=== PATIENT | female | born 1945 | race Caucasian/White ===

== ENCOUNTER 2024-01-15 10:02 | Inpatient (IN) ==
--- NOTE | 2024-01-15 10:12 | Emergency Department Note ---
Impression & Plan Intractable nausea and vomiting, Gastroparesis, Hypertensive urgency ED Provider Note Name: MERI LANDAVERDE Age: 78 Sex: Female Arrives Via: Ambulance Informant: Patient and family at bedside ED Provider: Tom Rascon MD Chief Complaint: Vomiting Impression: As per impressions above Medical Decision Makin-year-old female with a history of hypertension, gastroparesis, appendectomy amongst others arrives for evaluation of nausea vomiting this morning. Patient has persistent nausea and vomiting throughout the stay. Given multiple rounds of Zofran and then Reglan with mild improvement. Labs and imaging including CT ab pelvis with IV contrast unremarkable. Vital signs on arrival quite hypertensive thus required IV labetalol with improvement. EKG is reassuring as is chest x-ray. Troponin is 15 nonspecific. She is not having any active chest pain or shortness of breath. Given intractable nausea vomiting and the initial hypertensive will bring in for further evaluation. Of note the CT scan did show abnormality of the kidney. Patient is not having any flank pain or urinalysis unremarkable and blood pressure is coming down. Will defer to hospitalist for further workup at this time. Triage/Nursing Notes reviewed by Me Differential:Gastroenteritis, food borne illness, infections, appendicitis, diverticulitis, inflammatory bowel disease, obstruction, GI bleed, biliary pathology, volvulus, as well as other pathologies. Vital Signs: reviewed and remarkable for HTN Interventions: Zofran 4 mg IV x 3, labetalol 10 mg IV, Reglan 5 mg IV Labs:ED labs Reviewed by me and remarkable for mildly elevated troponin Imagin view chest x-ray no infiltrate nor effusion as per my interpretation. CT ab pelvis with IV contrast no obstruction, free fluid/free air as per my informal interpretation. Confirmed with radiology to do note questionable renal infarct versus infection. EKG:As per my interpretation. Indication hypertension. Normal sinus rhythm at 70 bpm QTc of 519 Per calculation however does not appear to be that prolonged. No previous EKGs for comparison. No ectopy nor ischemia appreciated. Cardiac/Tele Monitoring: Cardiac Monitoring: An Order was placed for continuous cardiac monitoring. The monitor shows a rate of 80 with a normal sinus rhythm. Consults:Dr. Maria Eugenia Barth hospitalist service, I reviewed patient with his team and they will evaluate for further management Plan: Disposition:Hospitalization. Condition: Good History of Present Illness: 78-year-old female arrives for evaluation of a abdominal discomfort. Associated with intractable vomiting since about 8 AM. Associated with diarrhea. No blood in stool or vomit. States abdominal discomfort is diffuse mild without localization. No radiation to back. Has a history of abdominal surgeries. Denies any falls, trauma, injuries. No medications prior to arrival. Patient notes she got a bit lightheaded with standing. Denies any specific headache, neurologic deficits, chest pain, shortness of breath, back pain, leg swelling or other concerning signs or symptoms. Denies any known sick contacts. She felt fine yesterday. Past Medical History: Hypertension, vertigo, anxiety, appendectomy, cholecystectomy, knee replacement Home Medications:See Below Allergies: Aspirin, sulfa Vitals:Blood Pressure: 213/111, Pulse 79, RR 18, T 36.0C, O2 97% on RA Physical Exam: GENERAL: Patient is uncomfortable appearing and in moderate distress. Dehydrated. RESPIRATORY: No dyspnea. Clear to auscultation and equal bilaterally. CARDIOVASCULAR: Regular rate and rhythm.No murmur appreciated. GASTROINTESTINAL: Abdomen soft, non-tender, no peritonitis. EXTREMITIES: Normal motion all extremities, no cyanosis, no edema. NEUROLOGIC: Alert and oriented. No focal neurologic deficits appreciated SKIN: No rash, no jaundice, no diaphoresis. PSYCH: Appropriate GCS: 15 ED Course: Times/Reassessments: Patient is quite hypertensive on arrival gradually improving. Continued nausea throughout her stay multiple rounds of Zofran but given the EKG with mild QTc prolongation trialed Reglan with some mild improvement still yet requires hospitalization given persistent nausea and other findings Tom Rascon MD Past Med/Surg History Problem List (Updated 01/15/24 @ 17:21 by Nilson Chen PA-C) Hypokalemia Elevated troponin Renal infarction Lightheadedness Hypertensive urgency (Acute) Gastroparesis (Acute) Intractable nausea and vomiting (Acute) Hypertension (Chronic) Contusion of right elbow (Acute) Contusion of right knee (Acute) Laceration of right eyebrow (Acute) Laceration of right eyebrow (Acute) Status post fall (Acute) Social History Smoking Status: Never smoker Hx Alcohol Use: No Hx Substance Use: No Preferred Language: Albanian Communication Ability: Effective Medical Voucher Clerk Required: No Beliefs That Will Affect Care: None Current Living Situation: Spouse Feels Safe at Home: Yes Safety Concerns: Feels Safe At This Time Assistive Devices: Glasses Allergies Allergies Allergy/AdvReac Type Severity Reaction Status Date / Time Sulfa (Sulfonamide Allergy Intermediate Unknown Verified 01/15/24 17:11 Antibiotics) aspirin AdvReac Mild upset Verified 02/04/14 21:21 stomach Home Meds Home Medications Medication Instructions Recorded Confirmed CELECOXIB (CeleBREX) 200 mg PO DAILY #0 caps 02/04/14 01/15/24 Ergocalciferol (Vitamin D) 800 inter.unit PO DAILY #0 tabs 02/04/14 01/15/24 Escitalopram (Lexapro) 10 mg PO DAILY #0 tabs 02/04/14 01/15/24 LORAZEPAM (ATIVAN) 0.5 mg PO HS PRN Anxiety #0 tabs 02/04/14 01/15/24 MECLIZINE HCL 25 mg PO PRN ##0 02/04/14 01/15/24 Multivitamins/Minerals (Mvi With 1 tab PO DAILY #0 tabs 02/04/14 01/15/24 Minerals) amlodipine 2.5 mg tablet 2.5 mg PO BID 01/15/24 01/15/24 losartan 50 mg tablet 50 mg PO DAILY 01/15/24 01/15/24 pantoprazole 40 mg tablet,delayed 40 mg PO DAILY 01/15/24 01/15/24 release pravastatin 80 mg tablet 80 mg PO HS 01/15/24 01/15/24 Results & Data (ED) Vital Signs Vital Signs - 24 hr 01/15/24 13:00 01/15/24 14:15 01/15/24 15:10 Pulse Rate 69 Pulse Rate [Left Finger] 56 L Pulse Rate from SpO2 Sensor Respiratory Rate 20 Blood Pressure Blood Pressure [Right Arm] 157/84 H Blood Pressure Mean Blood Pressure Mean [Right Arm] 108 Blood Pressure Position [Right Arm] Sitting Pulse Oximetry 93 86 L Oxygen Delivery Method Room Air Oxygen Flow Rate 01/15/24 15:10 01/15/24 16:00 01/15/24 16:00 Pulse Rate 59 L Pulse Rate [Left Finger] Pulse Rate from SpO2 Sensor 59 L Respiratory Rate 13 Blood Pressure 156/80 H Blood Pressure [Right Arm] Blood Pressure Mean 91 Blood Pressure Mean [Right Arm] Blood Pressure Position [Right Arm] Pulse Oximetry 94 97 Oxygen Delivery Method Nasal Cannula Oxygen Flow Rate 2 01/15/24 16:39 09/05/24 16:54 Pulse Rate 58 L 63 Pulse Rate [Left Finger] Pulse Rate from SpO2 Sensor 57 L 63 Respiratory Rate 12 14 Blood Pressure Blood Pressure [Right Arm] Blood Pressure Mean Blood Pressure Mean [Right Arm] Blood Pressure Position [Right Arm] Pulse Oximetry 96 97 Oxygen Delivery Method Nasal Cannula Oxygen Flow Rate 2 Laboratory Data 01/16/24 05:56 01/16/24 05:56 Lab Results 01/15/24 01/15/24 01/15/24 Range/Units 10:20 11:21 12:23 WBC Cancelled 7.16 RBC Cancelled 3.82 L Hgb Cancelled 12.0 Hct Cancelled 36.0 L MCV Cancelled 94.2 MCH Cancelled 31.4 MCHC Cancelled 33.3 RDW Std Deviation Cancelled 46.5 H RDW Coeff of Roel Cancelled 13.5 Plt Count Cancelled 236 MPV Cancelled 9.6 Immature Gran % (Auto) Cancelled 0.7 Neut % (Auto) Cancelled 61.5 Lymph % (Auto) Cancelled 17.7 Garrett % (Auto) Cancelled 17.5 Eos % (Auto) Cancelled 2.0 Baso % (Auto) Cancelled 0.6 Neut # (Auto) Cancelled 4.41 Lymph # (Auto) Cancelled 1.27 Garrett # (Auto) Cancelled 1.25 H Eos # (Auto) Cancelled 0.14 Baso # (Auto) Cancelled 0.04 Immature Gran # (Auto) Cancelled 0.05 Absolute Nucleated RBC Cancelled Nucleated RBC % (auto) Cancelled Neutrophils % (Manual) Cancelled Band Neutrophils % Cancelled Lymphocytes % (Manual) Cancelled Prolymphocyte % Cancelled Reactive Lymphs % (Man) Cancelled Monocytes % (Manual) Cancelled Eosinophils % (Manual) Cancelled Basophils % (Manual) Cancelled Metamyelocytes % (Man) Cancelled Myelocytes % (Man) Cancelled Promyelocytes % (Man) Cancelled Blast Cells % (Manual) Cancelled Plasma Cell % (Manual) Cancelled Other Cells % Cancelled Nucleated RBC % Cancelled Neutrophils # (Manual) Cancelled Band Neutrophils # Cancelled Total Absolute Neuts Cancelled Lymphocytes # (Manual) Cancelled Prolymphocyte # Cancelled Reactive Lymphs # Cancelled Total Abs Lymphocytes Cancelled Monocytes # (Manual) Cancelled Eosinophils # (Manual) Cancelled Basophils # (Manual) Cancelled Metamyelocytes # (Man) Cancelled Myelocytes # (Manual) Cancelled Promyelocytes # (Man) Cancelled Blast Cells # (Man) Cancelled Plasma Cell # (Manual) Cancelled Other Cells # Cancelled Nucleated RBCs # (Man) Cancelled Hypersegmented Neuts Cancelled Hyposegmented Neuts Cancelled Hypogranular Neuts Cancelled Large Granular Lymphs Cancelled # Lrg Granular Lymphs Cancelled Hairy Cells Cancelled Smudge Cells Cancelled Toxic Granulation Cancelled Toxic Vacuolation Cancelled Dohle Bodies Cancelled Emma Rods Cancelled Platelet Estimate Cancelled Hypogranular Platelets Cancelled Giant Platelets Cancelled Platelet Satelliting Cancelled RBC Morphology Cancelled Polychromasia Cancelled Hypochromasia Cancelled Poikilocytosis Cancelled Basophilic Stippling Cancelled Anisocytosis Cancelled Microcytosis Cancelled Macrocytosis Cancelled Spherocytes Cancelled Pappenheimer Bodies Cancelled Sickle Cells Cancelled Target Cells Cancelled Tear Drop Cells Cancelled Ovalocytes Cancelled Stomatocytes Cancelled Gillespie-Crozet Bodies Cancelled Echinocytes Cancelled Acanthocytes (Spur) Cancelled Rouleaux Cancelled RBC Agglutinates Cancelled Schistocytes Cancelled Sezary Cell Cancelled Sodium TNP 135 L 135 L Potassium TNP 3.4 L 3.5 Chloride 101 (98-107) mmol/L Carbon Dioxide 21 (21-32) mmol/L Anion Gap TNP BUN 17 (6-23) mg/dl Creatinine 1.31 H (0.6-1.2) mg/dl Est Cr Clr Drug Dosing 37.0 ml/min Est GFR ( Amer) 44.5 ml/min Est GFR (Non-Af Amer) 38.4 ml/min BUN/Creatinine Ratio 13.0 (10-20) Glucose 185 H (70-99(Fasting)) mg/dl Calcium 8.9 (8.6-10.3) mg/dl Magnesium TNP 1.6 L 1.6 L Total Bilirubin 0.4 (0.2-1.0) mg/dl Direct Bilirubin TNP 0.0 0.0 AST TNP 25 23 ALT 19 (7-52) U/L Alkaline Phosphatase 67 (34-104) U/L Total Creatine Kinase (26-192) U/L Troponin I High Sens 15.9 H (0-14) pg/ml Total Protein 7.3 (6.0-8.3) gm/dl Albumin 4.3 (3.4-5.0) gm/dl Lipase 29 (11-82) U/L Urine Color Urine Appearance (Clear) Urine pH (4.5-7.5) Ur Specific [place] (1.000-1.030) Urine Protein (Negative) Urine Glucose (UA) (Negative) Urine Ketones (Negative) Urine Blood (Negative) Urine Nitrite (Negative) Urine Bilirubin (Negative) Urine Urobilinogen (Negative) Ur Leukocyte Esterase (Negative) Blood Parasites ID Cancelled 01/15/24 01/15/24 Range/Units 12:33 14:44 WBC RBC Hgb Hct MCV MCH MCHC RDW Std Deviation RDW Coeff of Roel Plt Count MPV Immature Gran % (Auto) Neut % (Auto) Lymph % (Auto) Garrett % (Auto) Eos % (Auto) Baso % (Auto) Neut # (Auto) Lymph # (Auto) Garrett # (Auto) Eos # (Auto) Baso # (Auto) Immature Gran # (Auto) Absolute Nucleated RBC Nucleated RBC % (auto) Neutrophils % (Manual) Band Neutrophils % Lymphocytes % (Manual) Prolymphocyte % Reactive Lymphs % (Man) Monocytes % (Manual) Eosinophils % (Manual) Basophils % (Manual) Metamyelocytes % (Man) Myelocytes % (Man) Promyelocytes % (Man) Blast Cells % (Manual) Plasma Cell % (Manual) Other Cells % Nucleated RBC % Neutrophils # (Manual) Band Neutrophils # Total Absolute Neuts Lymphocytes # (Manual) Prolymphocyte # Reactive Lymphs # Total Abs Lymphocytes Monocytes # (Manual) Eosinophils # (Manual) Basophils # (Manual) Metamyelocytes # (Man) Myelocytes # (Manual) Promyelocytes # (Man) Blast Cells # (Man) Plasma Cell # (Manual) Other Cells # Nucleated RBCs # (Man) Hypersegmented Neuts Hyposegmented Neuts Hypogranular Neuts Large Granular Lymphs # Lrg Granular Lymphs Hairy Cells Smudge Cells Toxic Granulation Toxic Vacuolation Dohle Bodies Emma Rods Platelet Estimate Hypogranular Platelets Giant Platelets Platelet Satelliting RBC Morphology Polychromasia Hypochromasia Poikilocytosis Basophilic Stippling Anisocytosis Microcytosis Macrocytosis Spherocytes Pappenheimer Bodies Sickle Cells Target Cells Tear Drop Cells Ovalocytes Stomatocytes Gillespie-Crozet Bodies Echinocytes Acanthocytes (Spur) Rouleaux RBC Agglutinates Schistocytes Sezary Cell Sodium Potassium Chloride (98-107) mmol/L Carbon Dioxide (21-32) mmol/L Anion Gap BUN (6-23) mg/dl Creatinine (0.6-1.2) mg/dl Est Cr Clr Drug Dosing ml/min Est GFR ( Amer) ml/min Est GFR (Non-Af Amer) ml/min BUN/Creatinine Ratio (10-20) Glucose (70-99(Fasting)) mg/dl Calcium (8.6-10.3) mg/dl Magnesium Total Bilirubin (0.2-1.0) mg/dl Direct Bilirubin AST ALT (7-52) U/L Alkaline Phosphatase (34-104) U/L Total Creatine Kinase 277 H (26-192) U/L Troponin I High Sens 20.5 H (0-14) pg/ml Total Protein (6.0-8.3) gm/dl Albumin (3.4-5.0) gm/dl Lipase (11-82) U/L Urine Color Yellow Urine Appearance Clear (Clear) Urine pH 6.5 (4.5-7.5) Ur Specific [place] 1.013 (1.000-1.030) Urine Protein Negative (Negative) Urine Glucose (UA) Trace H (Negative) Urine Ketones Negative (Negative) Urine Blood Negative (Negative) Urine Nitrite Negative (Negative) Urine Bilirubin Negative (Negative) Urine Urobilinogen Negative (Negative) Ur Leukocyte Esterase Negative (Negative) Blood Parasites ID Administered Medications Amlodipine Besylate (Amlodipine Besylate 5 Mg Tab) 2.5 mg PO BID ELVER Stop: 02/15/24 08:59 Last Admin: 01/16/24 08:21 Dose: 2.5 mg Documented By: Enoxaparin Sodium (Enoxaparin 80 Mg/0.8 Ml Syr) 80 mg SQ Q12H ELVER Stop: 02/14/24 21:59 Last Admin: 01/16/24 10:37 Dose: 80 mg Documented By: Admin: 01/15/24 22:59 Dose: 80 mg Documented By: GH Escitalopram Oxalate (Escitalopram Oxalate 10 Mg Tab) 10 mg PO DAILY ELVER Stop: 02/15/24 08:59 Last Admin: 01/16/24 08:21 Dose: 10 mg Documented By: Losartan Potassium (Losartan Potassium 50 Mg Tab) 50 mg PO DAILY ELVER Stop: 02/15/24 08:59 Last Admin: 01/16/24 08:21 Dose: 50 mg Documented By: Ondansetron HCl (Ondansetron Inj 2 Mg/Ml 2 Ml Vial) 4 mg IV Q4H PRN PRN Reason: Nausea Stop: 02/14/24 20:11 Last Admin: 01/16/24 08:44 Dose: 4 mg Documented By: Admin: 01/16/24 04:31 Dose: 4 mg Documented By: WIL Pantoprazole Sodium (Pantoprazole 40 Mg Tab) 40 mg PO DAILY ELVER Stop: 02/15/24 08:59 Last Admin: 01/16/24 08:21 Dose: 40 mg Documented By: Discontinued Medications Hydromorphone HCl (Hydromorphone Inj 0.5 Mg/0.5 Ml Syr) 0.5 mg IV NOW STA Stop: 01/15/24 10:10 Last Admin: 01/15/24 10:24 Dose: 0.5 mg Documented By: EMILEE Sodium Chloride (Nss) 1,000 mls @ 999 mls/hr IV .Q1H1M ONE Stop: 01/15/24 12:49 Last Infusion: 01/15/24 14:17 Dose: Infused Documented By: Admin: 01/15/24 13:08 Dose: 999 mls/hr Documented By: CHARMAINE Magnesium Sulfate/Dextrose (Magnesium Sulfate / D5w) 1 gm in 100 mls @ 50 mls/hr IV Q2H ELVER Stop: 01/15/24 20:59 Last Infusion: 01/15/24 21:59 Dose: Infused Documented By: Admin: 01/15/24 19:56 Dose: 50 mls/hr Documented By: Infusion: 01/15/24 19:49 Dose: Infused Documented By: Admin: 01/15/24 17:49 Dose: 50 mls/hr Documented By: BLANCHE Potassium Chloride (K [place] / Wtr) 10 meq in 100 mls @ 100 mls/hr IV Q1H ELVER Stop: 01/15/24 19:44 Last Infusion: 01/16/24 00:46 Dose: Infused Documented By: Admin: 01/15/24 22:28 Dose: 100 mls/hr Documented By: Infusion: 01/15/24 21:44 Dose: Infused Documented By: Admin: 01/15/24 20:44 Dose: 100 mls/hr Documented By: LISA Promethazine HCl (Phenergan) 12.5 mg in 50.5 mls @ 202 mls/hr IV NOW STA Stop: 01/15/24 20:22 Last Admin: 01/15/24 21:00 Dose: Not Given Documented By: LISA Lactated Ringer's (Lr) 500 mls @ 999 mls/hr IV .Q31M ONE Stop: 01/16/24 09:05 Last Infusion: 01/16/24 09:18 Dose: Infused Documented By: Admin: 01/16/24 08:40 Dose: 999 mls/hr Documented By: BRIGIDO Ioversol (Optiray 320 100ml) 92 ml IV ONCE ONE Stop: 01/15/24 14:05 Last Admin: 01/15/24 14:04 Dose: 92 ml Documented By: CINTIA Ioversol (Optiray 320 125ml) 112 ml IV ONCE ONE Stop: 01/16/24 09:45 Last Admin: 01/16/24 09:45 Dose: 112 ml Documented By: TOSHIA Labetalol HCl (Labetalol Hcl Iv 5 Mg/Ml 20ml) 10 mg IV NOW STA Stop: 01/15/24 11:07 Last Admin: 01/15/24 11:12 Dose: 10 mg Documented By: EMILEE Lorazepam (Lorazepam 0.5 Mg Tab) 0.5 mg PO NOW STA Stop: 01/16/24 10:24 Last Admin: 01/16/24 10:37 Dose: 0.5 mg Documented By: BRIGIDO Metoclopramide HCl (Metoclopramide Hcl Inj 5 Mg/Ml 2 Ml Vial) 5 mg IV ONE ONE Stop: 01/15/24 15:32 Last Admin: 01/15/24 15:38 Dose: 5 mg Documented By: BLANCHE Ondansetron HCl (Ondansetron Inj 2 Mg/Ml 2 Ml Vial) 4 mg IV NOW STA Stop: 01/15/24 10:10 Last Admin: 01/15/24 10:25 Dose: 4 mg Documented By: EMILEE Ondansetron HCl (Ondansetron Inj 2 Mg/Ml 2 Ml Vial) 4 mg IV NOW STA Stop: 01/15/24 11:50 Last Admin: 01/15/24 13:08 Dose: 4 mg Documented By: CHARMAINE Ondansetron HCl (Ondansetron Inj 2 Mg/Ml 2 Ml Vial) 4 mg IV NOW STA Stop: 01/15/24 14:33 Last Admin: 01/15/24 14:42 Dose: 4 mg Documented By: CHARMAINE Ondansetron HCl (Ondansetron Inj 2 Mg/Ml 2 Ml Vial) Confirm Administered Dose 4 mg .ROUTE .STK-MED ONE Stop: 01/15/24 14:34 Last Admin: 01/15/24 14:41 Dose: Not Given Documented By: CHARMAINE Pantoprazole Sodium (Pantoprazole 40 Mg Tab) 40 mg PO NOW STA Stop: 01/15/24 17:11 Last Admin: 01/15/24 17:49 Dose: 40 mg Documented By: BLANCHE Imaging Data Radiologist's Impression: KUB X-Ray 01/15/24 10:09 KUB HISTORY: Acute nausea and vomiting vomiting COMPARISON: Chest radiograph of same day FINDINGS: There are a few scattered surgical clips noted within the abdomen with cholecystectomy. The bowel gas pattern appears nonobstructive. Renal shadows are obscured by bowel gas. Right hemidiaphragmatic elevation. No renal calculi. No ureteral calculi. No pneumoperitoneum or pneumatosis. Lumbar dextroscoliosis. No fracture. IMPRESSION: Nonobstructive bowel gas pattern. ACT 112: Negative or not required by law. The above report was generated using voice recognition software. It may contain grammatical, syntax or spelling errors. Electronically signed by: Regan Arciniega M.D. 01/15/2024 11:56 AM Chest X-Ray 01/15/24 10:10 XR chest 1V portable HISTORY: 78 years-old Female vomiting, htn acute nausea and vomiting with hypertension COMPARISON: KUB of same day TECHNIQUE: AP view of the chest FINDINGS: Cardiac silhouette is enlarged. Mild right hemidiaphragmatic elevation. Left hilar surgical lisseth. No pneumothorax, pleural effusion, airspace consolidation or pulmonary edema. Bones of the chest appear grossly intact. IMPRESSION: No acute process. ACT 112: Negative or not required by law. The above report was generated using voice recognition software. It may contain grammatical, syntax or spelling errors. Electronically signed by: Regan Arciniega M.D. 01/15/2024 11:40 AM Abdomen/Pelvis CT 01/15/24 11:[address] WITH IV CONTRAST CT DOSE: 1328.74 mGy.cm HISTORY: Acute nausea with vomiting intractable vomiting TECHNIQUE: Multiaxial CT images of the abdomen and pelvis were performed following the IV administration of 92 cc of Optiray, A dose lowering technique was utilized adhering to the principles of ALARA. COMPARISON STUDY: None. FINDINGS: Mild cardiomegaly. Right hemidiaphragmatic elevation with mild subsegmental bibasilar atelectasis. No free air. Unremarkable spleen, pancreas and adrenal glands. Cholecystectomy with postsurgical biliary ductal dilation. Unremarkable liver. Patency of the hepatic and portal veins. Ill-defined wedge-shaped area of decreased attenuation within the mid inferior pole left kidney measuring 1.8 cm. Mild cortical thinning of the kidneys. Unremarkable urinary bladder. Uterus appears surgically absent. Atherosclerosis of the aorta without aneurysm. No lymphadenopathy. Small hiatal hernia. No bowel obstruction. Colonic diverticulosis. Prior partial sigmoid colon resection. There is a mild wall thickening noted throughout the colon. Unremarkable soft tissues. No acute fracture. Prior appendectomy. IMPRESSION: 1. No bowel obstruction or pneumoperitoneum. 2. Areas of mild wall thickening throughout the large bowel may be secondary to partial distention versus a mild nonspecific colitis. 3. Appendectomy and cholecystectomy. 4. Focal area of decreased attenuation within the mid to inferior pole left kidney suggestive of a renal infarct versus pyelonephritis. Correlate with urinalysis. 5. Small hiatal hernia. ACT 112: Negative or not required by law. The above report was generated using voice recognition software. It may contain grammatical, syntax or spelling errors. Electronically signed by: Regan Arciniega M.D. 01/15/2024 3:11 PM Discharge Plan Visit Data Chief Complaint: Illness Stated Complaint: DIARRHEA, VOMITING ED Provider: Tom Rascon Discharge Problem: Intractable nausea and vomiting, Gastroparesis, Hypertensive urgency Patient Disposition: Admitted As Inpatient Discharge Instructions Interventions: ED Discharge Assessment Last Done: 01/15/24 18:39
[2024-01-15] MEDS: HYDROmorphone INJ 0.5 MG/0.5 ML SYR IV STA (10:24)
[2024-01-15] MEDS: ONDANSETRON INJ 2 MG/ML 2 ML VIAL IV STA ×3 (10:25→14:42)
[2024-01-15] MEDS: LABETALOL HCL IV 5 MG/ML 20ML IV STA (11:12)
[2024-01-15 11:15] LABS: Alanine Aminotransferase 19 U/L (7-52); Albumin Level 4.3 gm/dl (3.4-5.0); Alkaline Phosphatase 67 U/L (34-104); Bilirubin,Total 0.4 mg/dl (0.2-1.0); Blood Urea Nitrogen 17 mg/dl (6-23); Calcium 8.9 mg/dl (8.6-10.3); Carbon Dioxide 21 mmol/L (21-32); Chloride 101 mmol/L (98-107); Est GFR (African American) 44.5 ml/min; Est GFR (Non-African American) 38.4 ml/min; Glucose 185 mg/dl (70-99(Fasting)); Lipase 29 U/L (11-82); Total Protein 7.3 gm/dl (6.0-8.3)
[2024-01-15 11:39] LABS: Troponin I High Sensitivity 15.9 pg/ml (0-14)
[2024-01-15 11:40] LABS: Red Blood Count 3.82 M/uL (4.20-5.40); White Blood Count 7.16 K/ul (4.8-10.8)
[2024-01-15 11:41] LABS: Basophils # (auto) 0.04 K/uL (0.00-0.20); Basophils % (auto) 0.6 %; Eosinophils # (auto) 0.14 K/uL (0.00-0.50); Immature Granulocytes # (auto) 0.05 K/uL (0.01-0.20); Immature Granulocytes % (auto) 0.7 %; Lymphocytes # (auto) 1.27 K/uL (1.20-3.40); Lymphocytes % (auto) 17.7 %; Mean Corpuscular Hemoglobin 31.4 pg (25.0-34.0); Mean Corpuscular Hgb Conc 33.3 g/dL (32.0-36.0); Mean Corpuscular Volume 94.2 fL (80.0-100.0); Mean Platelet Volume 9.6 fL (9.4-12.4); Monocytes # (auto) 1.25 K/uL (0.11-0.59); Monocytes % (auto) 17.5 %; Neutrophils # (auto) 4.41 K/uL (1.40-6.50); Neutrophils % (auto) 61.5 %; Platelet Count 236 K/uL (130-400); RDW Coefficient of Variation 13.5 % (11.5-14.5); RDW Standard Deviation 46.5 fL (36.4-46.3)
--- NOTE | 2024-01-15 11:42 | XRay Report ---
XR chest 1V portable HISTORY: 78 years-old Female vomiting, htn acute nausea and vomiting with hypertension COMPARISON: KUB of same day TECHNIQUE: AP view of the chest FINDINGS: Cardiac silhouette is enlarged. Mild right hemidiaphragmatic elevation. Left hilar surgical lisseth. No pneumothorax, pleural effusion, airspace consolidation or pulmonary edema. Bones of the chest appe ar grossly intact. IMPRESSION: No acute process. ACT 112: Negative or not required by law. The above report was generated using voice recognition software. It may contain grammatical, syntax o r spelling errors. Electronically signed by: Regan Arciniega M.D. 01/15/2024 11:40 AM
--- NOTE | 2024-01-15 11:57 | XRay Report ---
KUB HISTORY: Acute nausea and vomiting vomiting COMPARISON: Chest radiograph of same day FINDINGS: There are a few scattered surgical clips noted within the abdomen with cholecystectomy. The bowel gas pattern appears nonobstructive. Renal shadows are obscured by bowel gas. Right hemidiaphra gmatic elevation. No renal calculi. No ureteral calculi. No pneumoperitoneum or pneumatosis. Lumbar dextroscoliosis. No fracture. IMPRESSION: Nonobstructive bowel gas pattern. ACT 112: Negative or not required by law. The above report was generated using voice recognition software. It may contain grammatical, syntax o r spelling errors. Electronically signed by: Regan Arciniega M.D. 01/15/2024 11:56 AM
[2024-01-15 12:03] LABS: Magnesium 1.6 mg/dl (1.7-2.4); Potassium 3.4 mmol/L (3.5-5.1)
[2024-01-15 13:07] LABS: Magnesium 1.6 mg/dl (1.7-2.4); Potassium 3.5 mmol/L (3.5-5.1)
[2024-01-15] MEDS: SODIUM CHLORIDE 0.9% 1,000 ML IV ONE (13:08)
[2024-01-15] MEDS: OPTIRAY 320 100ml IV ONE (14:04)
[2024-01-15] MEDS: ONDANSETRON INJ 2 MG/ML 2 ML VIAL ONE (14:41)
[2024-01-15 14:58] LABS: Appearance Urine Clear (Clear); Bilirubin Urine Negative (Negative); Blood Urine Negative (Negative); Color Urine Yellow; Glucose Urine UA Trace (Negative); Ketones Urine Negative (Negative); Leukocyte Esterase Urine Negative (Negative); Nitrite Urine Negative (Negative); Protein Urine Negative (Negative); Specific Gravity Urine 1.013 (1.000-1.030); Urobilinogen Urine Negative (Negative); pH Urine 6.5 (4.5-7.5)
--- NOTE | 2024-01-15 15:12 | CT Scan Report ---
ABDOMEN AND PELVIS CT WITH IV CONTRAST CT DOSE: 1328.74 mGy.cm HISTORY: Acute nausea with vomiting intractable vomiting TECHNIQUE: Multiaxial CT images of the abdomen and pelvis were performed following the IV administrat ion of 92 cc of Optiray, A dose lowering technique was utilized adhering to the principles of ALARA. COMPARISON STUDY: None. FINDINGS: Mild cardiomegaly. Right hemidiaphragmatic elevation with mild subsegmental bibasilar atele ctasis. No free air. Unremarkable spleen, pancreas and adrenal glands. Cholecystectomy with postsurgi easton biliary ductal dilation. Unremarkable liver. Patency of the hepatic and portal veins. Ill-defined wedge-shaped area of decreased attenuation within the mid inferior pole left kidney measu ring 1.8 cm. Mild cortical thinning of the kidneys. Unremarkable urinary bladder. Uterus appears surg ically absent. Atherosclerosis of the aorta without aneurysm. No lymphadenopathy. Small hiatal hernia. No bowel obstruction. Colonic diverticulosis. Prior partial sigmoid colon resect ion. There is a mild wall thickening noted throughout the colon. Unremarkable soft tissues. No acute fracture. Prior appendectomy. IMPRESSION: 1. No bowel obstruction or pneumoperitoneum. 2. Areas of mild wall thickening throughout the large bowel may be secondary to partial distention ve rsus a mild nonspecific colitis. 3. Appendectomy and cholecystectomy. 4. Focal area of decreased attenuation within the mid to inferior pole left kidney suggestive of a re nal infarct versus pyelonephritis. Correlate with urinalysis. 5. Small hiatal hernia. ACT 112: Negative or not required by law. The above report was generated using voice recognition software. It may contain grammatical, syntax o r spelling errors. Electronically signed by: Regan Arciniega M.D. 01/15/2024 3:11 PM
[2024-01-15] MEDS: METOCLOPRAMIDE HCL INJ 5 MG/ML 2 ML VIAL IV ONE (15:38)
--- NOTE | 2024-01-15 16:35 | History & Physical Report ---
Date of Service January 15, 2024 Assessment & Plan (1) Hypertensive urgency: Plan: Admit to the PCU on telemetry and pulse oximetry Currently stable nontoxic-appearing Presented to the ED via EMS after waking with acute onset of lightheadedness, nausea, and nonbloody emesis [place] her normal self when she went to bed yesterday evening Was noted to be significantly hypertensive on arrival at 259/159 but otherwise stable Multiple possible pathologies to her hypertension on arrival as she reported she missed her at bedtime dose of amlodipine on 01/14/2024. >CT of the abdomen pelvis with IV contrast today noted a focal area of decreased attenuation within the mid to inferior pole of the left kidney suggestive of a renal infarct versus pyelonephritis >UA appears clean and patient has been without symptoms of UTI >If she truly had an renal infarction, this could possibly explain her hypertension on presentation Patient has responded well to 10 mg IV labetalol so far Will obtain stat CT of the head and brain without contrast for the evaluation with better hypertension lightheadedness on arrival Would restart her home losartan and amlodipine when her nausea resolves For now we will start labetalol to keep systolic blood pressure was 180 mmHg and diastolic less than [address] head and brain without contrast is within normal limits will start therapeutic lovenox for both renal infarction and DVT prophylaxis Clear liquid diet for now until nausea improves AM CBC, CMP, mag, PT/INR (2) Renal infarction: Plan: -At this time we have high clinical suspicion that the CT abd/pelvis results represent an acute renal infarction -Patient is without UA results or symptoms to suggest UTI/pyelonephritis -HTN, nausea, and vomiting are often seen with renal infarction -Will obtain hypercoagulable workup and TTE -Will speak with radiology to see if further imaging would be required for further assessment -If CT of the head/brain wo con is WNL will start patient on Lovenox for initial anticoagulation -Follow daily renal function (3) Intractable nausea and vomiting: Plan: Patient woke with nausea and multiple sets of nonbloody emesis Nausea and vomiting could possibly related to her hypertension on arrival, patient was also noted to have signs of bowel wall thickening on CT of the abdomen pelvis which could possibly represent a nonspecific colitis After multiple doses of Zofran and a dose of metoclopramide symptoms are currently under control Review of patient's EKG shows her QTc prolonged at 516, will need to be cautious using IV antiemetics moving forward Will give a dose of p.o. pantoprazole now and continue to monitor (4) Lightheadedness: Plan: Patient noted lightheadedness upon waking today with significant hypertension No other focal neuro symptoms, neuro exam is nonfocal Symptoms have improved but not completely resolved since control her blood pressure Suspect her lightheadedness was due to her significant hypertension arrival at will obtain CT of the head and brain without contrast now for further evaluation Fall/aspiration precautions have been ordered (5) Elevated troponin: Plan: Initial high-sensitivity troponin mildly elevated at 15.9 Patient denies recent chest pain, no significant ST segment or T wave changes on EKG Suspect the elevated troponin is due to her significant hypertension on arrival Will obtain repeat high-sensitivity troponin now and continue monitor on telemetry Follow TTE results tomorrow as we have ordered TTE for further evaluation of possible renal infarct (6) Hypokalemia: Plan: Potassium of 3.4 o arrival Mag is 1.6 Likely combination of hypomagnesemia and recurrent nausea/vomiting prior to arrival Will give 2 bags 1 g IV mag sulfate on admission Monitor a.m. renal function electrolytes Plan The patient was discussed with Dr. Pepe at the time of the admission History of Present Illness Chief Complaint: N/V/D Primary Care Provider: Michael Nunes MD [place] is a 78-year-old female with a past medical history significant for hypertension, anxiety, And hyperlipidemia who presented to the [facility] ED on 01/15/[facility]24 with complaints of approximate 1 week of current nausea, vomiting, and diarrhea. On arrival to the ED she was noted to be significantly hypertensive at 259/159 But otherwise stable. She later became hypoxic after receiving IV pain and nausea medications. Labs were significant for a creatinine 1.31 (no previous baseline in our system), magnesium 1.6, initial high-sensitivity troponin 15, and trace glucose in her UA. Chest x-ray and KUB were read as negative for acute findings. CT of the abdomen pelvis with IV contrast was read as no bowel obstruction or pneumoperitoneum. Areas of mild wall thickening throughout the large bowel may be secondary to partial distention versus a mild nonspecific colitis. Appendectomy and cholecystectomy. Focal area of decreased attenuation within the mid to inferior pole left kidney suggestive of a renal infarct versus pyelonephritis. Correlate with urinalysis. Small hiatal hernia. Prior to admission the patient was given 10 mg IV labetalol, 0.5 mg IV Dilaudid, 3 doses of 4 mg IV Zofran, 5 mg IV metoclopramide, and 1 L normal saline. Patient is lying in bed in no acute distress at time of exam with her and daughter sitting bedside, history is obtained from both. The patient had been in normal state health when she went to bed last evening, when asked she did note that she forgot to take her at bedtime dose of amlodipine. When she woke this morning she explained that she felt "funny". When asked to elaborate further she states she felt somewhat lightheaded and began to experience nausea and nonbloody emesis. Denies any abdominal or back pain. Denies chest pain, shortness of breath, headache, changes in vision, hearing, taste, smell, fever/chills, dysuria/hematuria, diarrhea, melena, lower extremity swelling, and recent trauma. Feels improved compared to arrival but still feeling slightly lightheaded. She currently takes amlodipine and losartan for blood pressure. When asked about eating out recently she confirms that she did not have [employer] yesterday for dinner, her also had the same meal and did not experience any similar symptoms. Denies a previous history of atrial fibrillation, blood clots, or diabetes mellitus. Denied a previous history of any major bleeding if systemic anticoagulation would be required. Confirms she did not have any of her a.m. medications today due to her nausea and vomiting. She wishes to be a full code and for her daughter to make medical decisions for her if she cannot make them herself. Patient explains that she is normally at [facility] patient. Please refer to Dr. Pepe's attestation for any changes to the treatment plan Allergies Allergy/AdvReac Type Severity Reaction Status Date / Time Sulfa (Sulfonamide Allergy Intermediate Unknown Verified 01/15/24 17:11 Antibiotics) aspirin AdvReac Mild upset Verified 02/04/14 21:21 stomach Home Medications Medication Instructions Recorded Confirmed Type CELECOXIB (CeleBREX) 200 mg PO DAILY #0 caps 02/04/14 01/15/24 History Ergocalciferol (Vitamin D) 800 inter.unit PO DAILY #0 tabs 02/04/14 01/15/24 History Escitalopram (Lexapro) 10 mg PO DAILY #0 tabs 02/04/14 01/15/24 History LORAZEPAM (ATIVAN) 0.5 mg PO HS PRN Anxiety #0 tabs 02/04/14 01/15/24 History MECLIZINE HCL 25 mg PO PRN ##0 02/04/14 01/15/24 History Multivitamins/Minerals (Mvi With 1 tab PO DAILY #0 tabs 02/04/14 01/15/24 History Minerals) amlodipine 2.5 mg tablet 2.5 mg PO BID 01/15/24 01/15/24 History losartan 50 mg tablet 50 mg PO DAILY 01/15/24 01/15/24 History pantoprazole 40 mg tablet,delayed 40 mg PO DAILY 01/15/24 01/15/24 History release pravastatin 80 mg tablet 80 mg PO HS 01/15/24 01/15/24 History Past Med/Surg History Problem List (Updated 01/15/24 @ 17:21 by Nilson Chen PA-C) Hypokalemia Elevated troponin Renal infarction Lightheadedness Hypertensive urgency (Acute) Gastroparesis (Acute) Intractable nausea and vomiting (Acute) Hypertension (Chronic) Contusion of right elbow (Acute) Contusion of right knee (Acute) Laceration of right eyebrow (Acute) Laceration of right eyebrow (Acute) Status post fall (Acute) Social History Smoking Status: Never smoker Hx Alcohol Use: No Hx Substance Use: No Preferred Language: Icelandic Communication Ability: Effective Compounder Sterile Products Required: No Beliefs That Will Affect Care: None Current Living Situation: Spouse Feels Safe at Home: Yes Safety Concerns: Feels Safe At This Time Assistive Devices: Glasses Physical Exam Physical Exam: Physical Exam: General: In no acute distress, stated age, well-nourished, Nontoxic-appearing HEENT: Normocephalic, atraumatic, no scleral icterus, pupils around round, symmetrical, and reactive to light, dry mucus membranes, trachea midline, no thyromegaly Chest/Pulm: No respiratory distress, symmetrical chest expansion, clear breath sounds throughout Cardiac: RRR, no murmurs noted Abdomen: Negative for ascites and bruising, normoactive bowel sounds, soft, non-tender to palpation throughout Musculoskeletal: Symmetrical and without signs of acute trauma, upper and lower extremities with full ROM, no atrophy, spasticity, or flaccidity Extremities: Radial, dorsalis pedis, and posterior tibial pulses are intact and symmetrical, no edema noted in the BL LE's Skin: Warm, dry, no rashes , lesions, or scars noted Neuro: Alert and oriented to person, place, month, year, and president, no focal defects, CN II-XII tested and intact, Negative cerebellar and pronator drift testing of bilateral upper extremities, no tremors noted Psych: No acute distress, calm and cooperative during the exam Results & Data Results & Data Vital Signs (Past 12 Hours) Vital Signs Temp Pulse Pulse Resp BP BP Pulse Ox 01/15/24 15:10 94 01/15/24 15:10 86 L 01/15/24 14:15 69 01/15/24 13:00 56 L 20 157/84 H 93 01/15/24 11:12 77 169/99 H 01/15/24 11:01 70 20 259/159 H 98 01/15/24 10:11 79 01/15/24 10:07 36.0 C L 79 18 213/111 H 97 O2 Del Method O2 Flow Rate 01/15/24 15:10 Nasal Cannula 2 01/15/24 15:10 Room Air 01/15/24 14:15 01/15/24 13:00 01/15/24 11:12 01/15/24 11:01 01/15/24 10:11 01/15/24 10:07 Room Air Laboratory Results Abnormal lab results 01/15/24 01/15/24 01/15/24 Range/Units 10:20 11:21 12:23 RBC 3.82 L (4.20-5.40) M/uL Hct 36.0 L (37.0-47.0) % RDW Std Deviation 46.5 H (36.4-46.3) fL [place] # (Auto) 1.25 H (0.11-0.59) K/uL Sodium 135 L 135 L (136-145) mmol/L Potassium 3.4 L (3.5-5.1) mmol/L Creatinine 1.31 H (0.6-1.2) mg/dl Glucose 185 H (70-99(Fasting)) mg/dl Magnesium 1.6 L 1.6 L (1.7-2.4) mg/dl Troponin I High Sens 15.9 H (0-14) pg/ml Urine Glucose (UA) (Negative) 01/15/24 Range/Units 14:44 RBC (4.20-5.40) M/uL Hct (37.0-47.0) % RDW Std Deviation (36.4-46.3) fL [place] # (Auto) (0.11-0.59) K/uL Sodium (136-145) mmol/L Potassium (3.5-5.1) mmol/L Creatinine (0.6-1.2) mg/dl Glucose (70-99(Fasting)) mg/dl Magnesium (1.7-2.4) mg/dl Troponin I High Sens (0-14) pg/ml Urine Glucose (UA) Trace H (Negative) Diagnostic Findings KUB X-Ray 01/15/24 10:09 KUB HISTORY: Acute nausea and vomiting vomiting COMPARISON: Chest radiograph of same day FINDINGS: There are a few scattered surgical clips noted within the abdomen with cholecystectomy. The bowel gas pattern appears nonobstructive. Renal shadows are obscured by bowel gas. Right hemidiaphragmatic elevation. No renal calculi. No ureteral calculi. No pneumoperitoneum or pneumatosis. Lumbar dextroscoliosis. No fracture. IMPRESSION: Nonobstructive bowel gas pattern. ACT 112: Negative or not required by law. The above report was generated using voice recognition software. It may contain grammatical, syntax or spelling errors. Electronically signed by: Regan Arciniega M.D. 01/15/2024 11:56 AM Chest X-Ray 01/15/24 10:10 XR chest 1V portable HISTORY: 78 years-old Female vomiting, htn acute nausea and vomiting with hypertension COMPARISON: KUB of same day TECHNIQUE: AP view of the chest FINDINGS: Cardiac silhouette is enlarged. Mild right hemidiaphragmatic elevation. Left hilar surgical lisseth. No pneumothorax, pleural effusion, airspace consolidation or pulmonary edema. Bones of the chest appear grossly intact. IMPRESSION: No acute process. ACT 112: Negative or not required by law. The above report was generated using voice recognition software. It may contain grammatical, syntax or spelling errors. Electronically signed by: Regan Arciniega M.D. 01/15/2024 11:40 AM Abdomen/Pelvis CT 01/15/24 11:[address] WITH IV CONTRAST CT DOSE: 1328.74 mGy.cm HISTORY: Acute nausea with vomiting intractable vomiting TECHNIQUE: Multiaxial CT images of the abdomen and pelvis were performed following the IV administration of 92 cc of Optiray, A dose lowering technique was utilized adhering to the principles of ALARA. COMPARISON STUDY: None. FINDINGS: Mild cardiomegaly. Right hemidiaphragmatic elevation with mild subsegmental bibasilar atelectasis. No free air. Unremarkable spleen, pancreas and adrenal glands. Cholecystectomy with postsurgical biliary ductal dilation. Unremarkable liver. Patency of the hepatic and portal veins. Ill-defined wedge-shaped area of decreased attenuation within the mid inferior pole left kidney measuring 1.8 cm. Mild cortical thinning of the kidneys. Unremarkable urinary bladder. Uterus appears surgically absent. Atherosclerosis of the aorta without aneurysm. No lymphadenopathy. Small hiatal hernia. No bowel obstruction. Colonic diverticulosis. Prior partial sigmoid colon resection. There is a mild wall thickening noted throughout the colon. Unremarkable soft tissues. No acute fracture. Prior appendectomy. IMPRESSION: 1. No bowel obstruction or pneumoperitoneum. 2. Areas of mild wall thickening throughout the large bowel may be secondary to partial distention versus a mild nonspecific colitis. 3. Appendectomy and cholecystectomy. 4. Focal area of decreased attenuation within the mid to inferior pole left kidney suggestive of a renal infarct versus pyelonephritis. Correlate with urinalysis. 5. Small hiatal hernia. ACT 112: Negative or not required by law. The above report was generated using voice recognition software. It may contain grammatical, syntax or spelling errors. Electronically signed by: Regan Arciniega M.D. 01/15/2024 3:11 PM ECG Additional Comments: Normal sinus rhythm with possible atrial Enlargement Code Status & VTE Plan Code Status Full code VTE Prophylaxis Plan VTE Prophylaxis will be ordered: Yes Supervising Physician Co-Signing Physician Notes I personally saw and examined the patient. I verified all lawrence points and agree with Nilson Chen PA-C with the following exceptions and/or additions: 78 year old female presents to the ER with intractable nausea, vomiting and high blood pressure. Renal infarct noted on CT. PA discussed with radiology and renal arteries appear widely patent therefore no need for CT angiogram. O/E HS RRR, no murmurs, Chest CTAB, Abdo SNT, no CVA tenderness, CN2-> 12 intact, no extremity weakness or loss of sensation A/P Intractable nausea and vomiting - unclear if driven by hypertension, stress, gastroparesis or renal infarct. Either way ondansetron has been somewhat helpful and will continue on this with repeat EKG showing QTc < 500ms. Hopefully with better control of her BP and Renal infarct - unclear if this is a new finding as the patient reports something was previously found on CT at [facility] but she is unsure what this is an never been on anticoagulation previously therefore will request records but presumption is this is new and will send hypercoagulable panel and start Lovenox for anticoagulation, pending hypercoagulable results duration recommended of 6 months. PG Care Time/CCT Total # of Minutes Spent Total Time Spent with Patient: Total time spent is greater than 50% in coordination of care (as documented) at patient's floor/unit and/or counseling patient: [place] [address] INT INP/OBS CARE 3/75MIN Patient Type New Medical Decision Making High Complexity Diagnoses Hypertensive urgency I16.0 Renal infarction N28.0 Intractable nausea and vomiting R11.2 Lightheadedness R42 Elevated troponin R79.89 Hypokalemia E87.6
[2024-01-15] MEDS ORDERED: ACETAMINOPHEN 1,000 MG/100 ML VIAL IV PRN (17:00)
[2024-01-15] MEDS ORDERED: LABETALOL HCL IV 5 MG/ML 20ML IV PRN (17:08)
[2024-01-15] MEDS: PANTOprazole 40 MG TAB PO STA (17:49)
[2024-01-15] MEDS: MAGNESIUM SULFATE / D5W 1 GM/100 ML BAG IV SCH (17:49)
[2024-01-15 18:12] LABS: Troponin I High Sensitivity 20.5 pg/ml (0-14)
[2024-01-15] MEDS: POTASSIUM CHLORIDE / WTR 10 MEQ/100 ML PLCT IV SCH (20:44)
[2024-01-15] MEDS: PROMETHAZINE 12.5 MG/50.5 ML BAG IV STA (21:00)
--- NOTE | 2024-01-15 21:34 | CT Scan Report ---
Exam(s): CT HEAD Without Contrast EXAM: CT Head Without Intravenous Contrast CLINICAL HISTORY: Reason for exam: HTN, nausea/vomiting, lightheadedness. TECHNIQUE: Axial computed tomography images of the head/brain without intravenous contrast. Automated exposure control was utilized for the study. A dose lowering technique was utilized adhering to the principles of ALARA. COMPARISON: CT head: 02/04/2014. FINDINGS: Diagnostic sensitivity of the exam is reduced by motion artifact. Brain: No acute intracranial hemorrhage, mass-effect or midline shift. No extra-axial fluid collections. . Age-related cerebral atrophy, with widening of the extra-axial spaces and ventricles are dilation. There are areas of decreased attenuation within the white matter tracts, compatible with chronic microvascular disease changes. Punctate senescent calcifications in the right basal ganglia Bones/joints: Unremarkable. No acute fracture. Soft tissues: Unremarkable. Sinuses: Bilateral ethmoidectomies.. No acute sinusitis. Mastoid air cells: Unremarkable as visualized. No mastoid effusion.. IMPRESSION: No acute intracranial abnormality noted. Chronic involutional and ischemic changes of the brain. . Electronically signed by: Siobhan Zavala MD, RODRIGOR 01/15/24 21:33 PM
[2024-01-15 21:49] LABS: Partial Thromboplastin Time 27 Seconds (21-31); Prothrombin Time 10.6 Seconds (9.0-12.0)
[2024-01-15] MEDS: ENOXAPARIN 80 MG/0.8 ML SYR SQ SCH (22:59)
--- OUTSIDE RECORDS SUMMARY | 2024-01-15 23:40 | External Medical Summary | Continuity of Care Document ---
Author Name Unknown Organization [address] [id number] Care Team Providers Care Taker Away Name Role Phone Katty Moreno Primary Care Physician [phone] Encounter [facility] [id number] Date(s): 12/31/23 - 12/31/[address] [address] [phone] Encounter Diagnosis Diverticulitis(Discharge Diagnosis) - 01/01/24 Discharge Disposition: Home or Self Care Attending Physician: MD Douglass Wilmot Clyde Allergies, Adverse Reactions, Alerts Substance Criticality Severity Reaction Reaction Severity Status aspirin Nausea Active sulfa drugs Nausea Active Assessment and Plan Extracted from: Title:Office Visit Note Author:MD Douglass Wilmot Clyde Date:01/01/24 1.Diverticulitis She is currently doing well. She is over her diverticulitis and knows to call here if she has any further issues. She is 78 years old and her colonoscopies have all been polyp free in the past. Granted her dad did have colon cancer but not until really late in life. I told her we could do colonoscopy as a routine if she wanted to but also if she decided she would rather not, she is 78 and I wouldn't argue with her. She feels like she doesn't want to do one because she always has anxiety issues and syncope related to IV starting. She will call if she changes her mind. Immunizations Given and Recorded Vaccine Date Status Refusal Reason pneumococcal 23-valent vaccine 01/29/12 Given pneumococcal 23-valent vaccine 05/12/06 Recorded influenza virus vaccine, inactivated 01/29/12 Give n influenza virus vaccine, inactivated 03/13/09 Jason rded zoster vaccine live 08/16/08 Recorded tetanus toxoids-diphtheria, Td (Adult) 05/12/07 Re corded tetanus toxoids-diphtheria, Td (Adult) 07/16/99 Re corded Medications amLODIPine 2.5 mg oral tablet Start: 12/31/23 11:14:00 AM EDT, 1 tab, PO, bid Start Date: 12/31/23 Status: Ordered Antivert Start: 10/10/14 8:55:00 AM EDT, 25 mg =, PO, bid, PRN: as needed for dizziness Start Date: 10/10/14 Status: Ordered Ativan Start: 10/10/14 8:56:00 AM EDT, 0.5 mg =, PO, PRN: as needed for anxiety Start Date: 10/10/14 Status: Ordered biotin 10 mg oral tablet Start: 11/03/18 10:44:00 AM EDT, 1 tab, PO, Daily Start Date: 11/03/18 Status: Ordered calcium (as carbonate) 500 mg oral tablet, chewable Start: 11/03/18 10:43:00 AM EDT, 1 tab, PO, Daily Start Date: 11/03/18 Status: Ordered Flexeril Start: 11/03/18 10:40:00 AM EDT, PO, qhs Start Date: 11/03/18 Status: Ordered Lexapro 10 mg oral tablet Start: 03/16/12 2:46:00 PM EST, 1 tab, PO, Daily Start Date: 03/16/12 Status: Ordered Lomotil 2.5 mg-0.025 mg oral tablet Start: 06/17/17 11:19:00 AM EST, 1 tab, PO, bid, Disp# 50 tab, Refills: 3, PRN: as needed for loose stool Start Date: 06/17/17 Status: Ordered losartan 50 mg oral tablet Start: 12/31/23 11:15:00 AM EDT, 1 tab, PO, Daily Start Date: 12/31/23 Status: Ordered Nasacort Allergy 24HR nasal spray Start: 10/10/14 9:05:00 AM EDT, 2 spray, intranasal, Daily Start Date: 10/10/14 Status: Ordered tetanus/diphth/pertuss (Tdap) adult/adol 5 units-2.5 units-18.5 mcg/0.5 mL intramuscular suspension Start: 10/14/17 12:10:00 PM EDT, 0.5 mL, IM, ONCE, Disp# 0.5 mL Start Date: 10/14/17 Status: Ordered Tylenol Start: 11/23/08 2:14:05 PM EDT, 500 mg 2 tabs, PO, Refills: 0, PRN: as needed for pain, current medication from another provider Start Date: 11/23/08 Status: Ordered valACYclovir 500 mg oral tablet Start: 12/06/14 10:31:00 AM EDT, See Instructions, 0.5 tab po daily Start Date: 12/06/14 Status: Ordered ZyrTEC 10 mg oral tablet Start: 12/19/16 8:34:00 AM EDT, 1 tab, PO, Daily Start Date: 12/19/16 Status: Ordered Mental Status 12/31/23 Barriers to Learning one year None evide nt Mandatory Health Literacy Documentation Yes Health Literacy Communication Barriers N ever Primary Language Samoan Problem List Condition Confirmation Course Effective Dates Status H ealth Status Informant Adenocarcinoma of lung Confirmed Active Atrophic vaginitis Confirmed Active Debridement of callus Confirmed Active Diverticulosis of colon Confirmed Active H/O: artificial joint Confirmed Active abdominal surgery 1 Confirmed Active Hernia, hiatal Confirmed Active History of pneumonia 2 Confirmed Active Hysterectomy Confirmed Active IBS (irritable bowel syndrome) Confirmed Active Lobectomy Confirmed Active Meniscus tear 3 Confirmed Active Osteopenia Confirmed Active Posterior vitreous detachment, both eyes Confirmed Active Pseudophakia of both eyes Confirmed Active Cervical spinal stenosis Confirmed Active Dry eye syndrome of both lacrimal glands Confirmed Active Urinary incontinence Confirmed Active Urticaria Confirmed Active Vertigo Confirmed Active Weight disorder Confirmed Active 1benign tumor 2x2 3right knee-anterior & posterior cortisone shots x3(2007, 05/20) Diagnosis Diagnosis Type Effective Dates Health Status Cl inical Service Informant Diverticulitis Discharge Diagnosis 01/01/24 Non-Specified Procedures Procedure Date Related Diagnosis Body Site Status LEFT KNEE SURGERY 05/2017 Complet ed Colonoscopy 1 10/01/13 Completed Knee replacement 2 11/03/12 Comple yasmany EGD (esophagogastroduodenoscopy) 06/15/09 Completed Colonoscopy 3 08/2008 Completed bowel resection 01/2004 Completed Laparotomy 08/1998 Completed Oopherectomy 5 08/1998 Completed Sinus surgery 12/1996 Completed Lobectomy 1991 Completed Hysterectomy 1982 Completed 11) Diverticula, scattered in the left colon. 2) HTN with asymptomatic B/P of 188/125 requiring treatment with labetalol prior to the procedure: post-sedation and labetalol at conclusion of procedure B/P of 146/80 and remained asymptomatic. 2right 3q5yr 4adhesion 5left 6left Vital Signs Most recent to oldest [Reference Range]: 1 Patient Weight 84.9 kg (12/31/23 11:15 AM) Heart Rate 66 bpm (12/31/23 11:15 AM) Respiratory Rate 17 br/min (12/31/23 11:15 AM) Blood Pressure 144/90mmHg (12/31/23 11:15 AM) Social History Social History Type Response Tobacco Former smoker, Cigar ettes 1 Smoking Status Never smoked cigaret linda Sex Female Sex Representation Female (finding) 1quit 1964 Gastroenterology Outpatient Note * MD Evonne, Gilberto Owen: PERFORM Event Display: Gastroenterology Outpt Note Authored Date: Chief Complaint New Patient. Wants to establish in area. Due for Colonoscopy History of Present Illness 78 year old female who had a bout with diverticulitis earlier this year that responded to cipro adarsh ?"tapering dose of prednisone?". She has had problems in the past and had a partial colectomy for diverticular disease about twenty years ago. She doesn't have any problems now. She does admit that her bowel movements are erratic but that is "normal" for her. She sees no blood in her stool. She says her last colonoscopy was ten years ago. Her dad had colon cancer and was diagnosed with it at age 85. Review of Systems 12 system ROS discussed with patient and negative except as in HPI Physical Exam Vitals & Measurements HR:66(Monitored) RR:17 BP:144/90 SpO2:98% WT:84.9kg WT:84.900kg(Dosing) Pleasant woman in no distress HEENT-normocephalic, atraumatic; sclera anicteric, EOMI; mouth-mucus membranes pink and moist Neck-supple Heart-RRR, S1, S2 normal, no murmurs Lungs-clear with good air movement Abdomen-soft, nontender, no masses or organomegaly Ext-no edema Assessment/Plan 1.Diverticulitis She is currently doing well. She is over her diverticulitis and knows to call here if she has any further issues. She is 78 years old and her colonoscopies have all been polyp free in the past. Granted her dad did have colon cancer but not until really late in life. I told her we could do colonoscopy as a routine if she wanted to but also if she decided she would rather not, she is 78 and I wouldn't argue with her. She feels like she doesn't want to do one because she always has anxiety issues and syncope related to IV starting. She will call if she changes her mind. Problem List/Past Medical History Ongoing abdominal surgery Adenocarcinoma of lung Allergic rhinitis, seasonal Anxiety Atrophic vaginitis cataracts Cervical spinal stenosis Debridement of callus DEPRESSION Diverticulosis of colon Dry eye syndrome of both lacrimal glands H/O: arthritis H/O: artificial joint Hernia, hiatal History of pneumonia HYPERTENSION Hysterectomy IBS (irritable bowel syndrome) Lobectomy Meniscus tear Onychomycosis of toenails Osteopenia Posterior vitreous detachment, both eyes Pseudophakia of both eyes Urinary incontinence Urticaria Vertigo Weight disorder Resolved Cough Elbow pain Foot pain HAND PAIN Ingrown toenail Initial Medicare annual wellness visit KNEE PAIN Mucous cyst of finger Procedure/Surgical History LEFT KNEE SURGERY| Service Date: 05/2017Colonoscopy| Service Date: 10/01/2013Knee replacement| Service Date: 11/03/2012EGD (esophagogastroduodenoscopy)| Service Date: 06/15/2009Colonoscopy| Service Date: owel resection| Service Date: 01/2004Oopherectomy| Service Date: 08/1998Laparotomy| Service Date: 08/1998Sinus surgery| Service Date: 12/1996Lobectomy| Service Date: 1991Hysterectomy| Service Date: 1981 Medications acetaminophen(Tylenol), 500 mg 2 tabs, PO, PRN amLODIPine(amLODIPine 2.5 mg oral tablet), 2.5 mg= 1 tab, PO, bid atropine-diphenoxylate(Lomotil 2.5 mg-0.025 mg oral tablet), 1 tab, PO, bid, PRN, 3 refills biotin(biotin 10 mg oral tablet), 10 mg= 1 tab, PO, Daily calcium carbonate(calcium (as carbonate) 500 mg oral tablet, chewable), 500 mg= 1 tab, PO, Daily cetirizine(ZyrTEC 10 mg oral tablet), 10 mg= 1 tab, PO, Daily cyclobenzaprine(Flexeril), PO, qhs escitalopram(Lexapro 10 mg oral tablet), 10 mg= 1 tab, PO, Daily lorazepam(Ativan), 0.5 mg, PO, PRN losartan(losartan 50 mg oral tablet), 50 mg= 1 tab, PO, Daily meclizine(Antivert), 25 mg, PO, bid, PRN tetanus/diphtheria/pertussis, acel (Tdap)(tetanus/diphth/pertuss (Tdap) adult/adol 5 units-2.5 units-18.5 mcg/0.5 mL intramuscular suspension), 0.5 mL, IM, ONCE triamcinolone nasal(Nasacort Allergy 24HR nasal spray), 2 spray, intranasal, Daily valACYclovir(valACYclovir 500 mg oral tablet), See Instructions Allergies aspirinNausea sulfa drugsNausea Social History Smoking Status Never smoked cigarettes Alcohol Frequency:rare Tobacco Use:Former smoker Type:Cigarettes - Comments: quit 1965 Family History Cardiovascular disease: Father. Colon cancer..: Father (Dx at 89) and Paternal Aunt. Testicular cancer: Brother. Valvular disease: Mother. Health Status Family Member(s) Family Member(s) Relationship: Brother, Age: 31 Years Immunizations Vaccine Date Status pneumococcal 23-valent vaccine 01/29/2012 Given influenza virus vaccine, inactivated 01/29/2012 Given influenza virus vaccine, inactivated 03/13/2009 Recorded zoster vaccine live 08/16/2008 Recorded tetanus toxoids-diphtheria, Td (Adult) 2007 Recorded pneumococcal 23-valent vaccine 2006 Recorded tetanus toxoids-diphtheria, Td (Adult) 07/16/1999 Recorded Recommendations Health Maintenance Pending(in the next year) OverDue Medicare Annual Wellness Visit due11/05/19and every 1year Adult Influenza Vaccine due11/09/23and every 1year Satisfied(in the past 1 year) There are no satisfied recommendations within the defined date range Electronic Signature on File Electronically Reviewed/Signed by: Gilberto Douglass M.D. Author Signature Dt/Tm:01/01/2024 07:16AM Division of Gastroenterology [facility] Patient Care team information Care Team Personnel Name: MD Josh, Katty Blackburn Position: Physician - Internal Med Member Role: Primary Care Provider Address: [address] [place] [address] Name: MARGA Hickman Tammy M Position: Physician [employer] Lining Finisher - Orthopaedic Surg Member Role: Lifetime Relationship Address: [address] [place] [address] Care Team Related Persons Name: CORIN FLOR Name: CORIN FLOR
[2024-01-16] MEDS: ONDANSETRON INJ 2 MG/ML 2 ML VIAL IV PRN (04:31)
[2024-01-16 06:09] LABS: Basophils # (auto) 0.05 K/uL (0.00-0.20); Basophils % (auto) 0.9 %; Eosinophils # (auto) 0.13 K/uL (0.00-0.50); Eosinophils % (auto) 2.2 %; Hematocrit (blood only) 32.3 % (37.0-47.0); Hemoglobin 10.8 g/dl (12.0-16.0); Immature Granulocytes # (auto) 0.06 K/uL (0.01-0.20); Lymphocytes # (auto) 1.92 K/uL (1.20-3.40); Lymphocytes % (auto) 32.8 %; Mean Corpuscular Hemoglobin 30.3 pg (25.0-34.0); Mean Corpuscular Hgb Conc 33.4 g/dL (32.0-36.0); Mean Corpuscular Volume 90.7 fL (80.0-100.0); Mean Platelet Volume 9.2 fL (9.4-12.4); Monocytes # (auto) 0.88 K/uL (0.11-0.59); Neutrophils # (auto) 2.82 K/uL (1.40-6.50); Neutrophils % (auto) 48.1 %; Platelet Count 262 K/uL (130-400); RDW Coefficient of Variation 13.4 % (11.5-14.5); RDW Standard Deviation 45.1 fL (36.4-46.3); Red Blood Count 3.56 M/uL (4.20-5.40); White Blood Count 5.86 K/ul (4.8-10.8)
[2024-01-16 06:29] LABS: Albumin Globulin Ratio 1.5 (0.9-2); Albumin Level 3.9 gm/dl (3.4-5.0); BUN Creatinine Ratio 10.2 (10-20); Bilirubin,Total 0.4 mg/dl (0.2-1.0); Calcium 8.8 mg/dl (8.6-10.3); Creatinine Clr Calc Pharmacy 49.7 ml/min; Est GFR (African American) 63.1 ml/min; Est GFR (Non-African American) 54.5 ml/min; Globulin 2.6 gm/dl (2.5-4.0); Magnesium 2.3 mg/dl (1.7-2.4); Potassium 3.9 mmol/L (3.5-5.1); Total Protein 6.5 gm/dl (6.0-8.3)
[2024-01-16 06:35] LABS: Prothrombin Time 10.9 Seconds (9.0-12.0)
[2024-01-16 07:19] LABS: Estimated Average Glucose 131 mg/dl; Hemoglobin A1C 6.2 % (4.5-5.6)
[2024-01-16] MEDS: ESCITALOPRAM OXALATE 10 MG TAB PO SCH (08:21)
[2024-01-16] MEDS: amLODIPine BESYLATE 5 MG TAB PO SCH (08:21)
[2024-01-16] MEDS: PANTOprazole 40 MG TAB PO SCH (08:21)
[2024-01-16] MEDS: LOSARTAN POTASSIUM 50 MG TAB PO SCH (08:21)
[2024-01-16] MEDS: LACTATED RINGER'S 500 ML IV ONE (08:40)
--- NOTE | 2024-01-16 08:42 | Hospitalist Progress Note ---
Date of Service January 16, 2024 Assessment & Plan (1) Renal infarction: Plan: 78 y/o woman presented with nausea/vomiting, lightheadedness and hypertensive urgency. 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 Presentation, labs, UA not suggestive of pyelonephritis. She has risk factors for afib and atheroemboli. -check LDH - normal, CRP - mildly elevated at 1.82. AST/ALT not elevated -CTA abdomen - reviewed, no evidence of left-sided renal artery stenosis or occlusion, no dissection. 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 ordered LR bolus for renal protection -TTE - reviewed, normal. Negative bubble study no intracardiac thrombus no significant valvular disease. Normal ejection fraction -tele monitoring, ambulatory cardiac monitoring for detection of afib -hypercoag workup sent, pending -anticoagulated on enoxaparin, will change to apixaban -aspirin for antiplatelet -control hypertension -daily BMP (2) Hypertensive urgency: Plan: Presumably provoked by renal infarct Was noted to be significantly hypertensive on arrival at 259/159 but otherwise stable continue PRN labetalol to keep systolic blood pressure was 180 mmHg and diastolic less than 120 mmHg - continue amlodipine 2.5 mg twice daily, for changed to 5 mg daily if tolerating - losartan BP improved today, systolic in 140s (3) Intractable nausea and vomiting: Plan: improved, probably related to renal infarct continue antiemetics as needed, advance diet as tolerated noted to have signs of bowel wall thickening on CT and CTA of the abdomen pelvis which could possibly represent a nonspecific colitis no abdominal pain or diarrhea however, so perhaps just under distention (4) Lightheadedness: Plan: improved (5) Elevated troponin: Plan: high-sensitivity troponin minimally elevated at 15.9 --> 20 Patient denies recent chest pain, no significant ST segment or T wave changes on EKG, presentation not consistent with ACS consistent with myocardial demand ischemia related to the severe hypertension (6) Hypokalemia: Plan: potassium and magnesium replaced on admission, potassium 3.9 today Plan DVT prophylaxis: Anticoagulated Admission and Anticipated Discharge Date Admission Date: January 15, 2024 Subjective Cehyenne does feel better today though remains nauseated does not intend to try to eat yet has been drinking some clears. headache resolved. No abdominal pain or flank pain. no history of atrial fibrillation or known arrhythmias. No history of VTE Physical Exam 2 Physical Exam: PHYSICAL EXAMINATION Last 24h vital signs reviewed, see documentation in flowsheet General: comfortable appearing, no distress HEENT: Normocephalic, atraumatic, pupils round and equal, sclerae anicteric, no conjunctival injection, moist mucus membranes Lungs: Normal respiratory effort. Clear to auscultation bilaterally. No RRW Heart: Regular rate and rhythm, no murmurs. No JVD Abdomen: Soft, nontender, nondistended. Bowel sounds present. Extremities: Warm, dry, well-perfused. No extremity edema. no flank tenderness or CVA tenderness Neuro: Alert and oriented x 4, face symmetric, moves 4 extremities well Psych: Normal affect and behavior Results & Data Results & Data Vital Signs (Past 12 Hours) Vital Signs Temp Pulse Pulse Resp BP Pulse Ox O2 Del Method 01/16/24 08:01 64 18 161/80 H 94 Room Air 01/16/24 03:19 36.6 C 67 18 133/68 96 Room Air 01/16/24 00:30 72 141/68 H 96 Room Air 01/15/24 23:34 62 01/15/24 22:48 36.8 C 65 18 152/72 H 95 Room Air Laboratory Results 01/16/24 05:56 01/16/24 05:56 PG Care Time/CCT Total # of Minutes Spent Total Time Spent with Patient: Total time spent is greater than 50% in coordination of care (as documented) at patient's floor/unit and/or counseling patient: Coding Level of Care Code 97502 SUB INP/OBS CARE 3/50MIN Diagnoses Renal infarction N28.0 Hypertensive urgency I16.0 Intractable nausea and vomiting R11.2 Lightheadedness R42 Elevated troponin R79.89 Hypokalemia E87.6
--- NOTE | 2024-01-16 08:49 | Electrocardiogram Report ---
Test Reason : Blood Pressure : */* mmHG Vent. Rate : 68 BPM Atrial Rate : 68 BPM P-R Int : 228 ms QRS Dur : 82 ms QT Int : 452 ms P-R-T Axes : 61 69 70 degrees QTcB Int : 480 ms Poor data quality, interpretation may be adversely affected Sinus rhythm with 1st degree A-V block Otherwise normal ECG When compared with ECG of 15-Jan-2024 10:11, (unconfirmed) AR interval has increased Confirmed by Roberth Garnica ([id number]) on 01/16/2024 8:48:53 AM Referred By: REFERRED SELF Confirmed By: Roberth Garnica
--- NOTE | 2024-01-16 09:02 | Electrocardiogram Report ---
Test Reason : Blood Pressure : */* mmHG Vent. Rate : 78 BPM Atrial Rate : 78 BPM P-R Int : 136 ms QRS Dur : 88 ms QT Int : 456 ms P-R-T Axes : 74 63 49 degrees QTcB Int : 519 ms Normal sinus rhythm Possible Left atrial enlargement Borderline ECG No previous ECGs available Confirmed by Roberth Garnica ([id number]) on 01/16/2024 9:02:31 AM Referred By: REFERRED SELF Confirmed By: Roberth Garnica
[2024-01-16 09:41] LABS: C Reactive Protein 1.82 mg/dl (0-0.5)
[2024-01-16] MEDS: OPTIRAY 320 125ml IV ONE (09:45)
--- NOTE | 2024-01-16 10:05 | XCELERA ---
[id number]
[2024-01-16] MEDS ORDERED: LORazepam 0.5 MG TAB PO PRN (10:22)
--- NOTE | 2024-01-16 10:32 | CT Scan Report ---
CT angio abdomen w con CT DOSE: 787.89 mGy.cm CLINICAL HISTORY: renal infarct . Abnormal CT. Follow-up. TECHNIQUE: Multiaxial CT images of the abdomen were performed following the intravenous administratio n of contrast to evaluate the renal arteries. 3-D/maximal intensity projection images in the sagitta l and coronal planes were also obtained for the CTA portion of the examination. A dose lowering techn ique was utilized adhering to the principles of ALARA. COMPARISON STUDY: Abdomen and pelvis CT 01/15/2024. FINDINGS: A few bibasilar linear densities consistent with subsegmental atelectasis. No acute fractur es identified. The heart is mildly enlarged. There is a small hiatus hernia. No dilated loops of windy l to suggest an obstruction. Scattered colonic diverticula. No evidence for acute diverticulitis. Que stionable mild thickening within the large bowel which could be due to underdistention or a low-grade colitis. This is similar to the prior CT examination. The spleen, adrenal glands, and pancreas are u nremarkable. Stable 9 mm hypodense lesion within the right hepatic lobe. This is technically too smal l to characterize but statistically represents a cyst. Few small peripheral hypervascular foci within the right and left hepatic lobes may represent perfusion anomalies. Prior cholecystectomy. No retrop eritoneal lymphadenopathy. Bilateral cortical renal scarring/thinning. The area of decreased enhancem ent within the left kidney seen on the prior study is not well evaluated on this study. This may be d ue to the timing of contrast. No hydronephrosis. Mild calcified plaque within the normal caliber abdominal aorta. The celiac artery and its major bran ches are widely patent. The superior mesenteric artery and inferior mesenteric artery are also widely patent. There is a single right renal artery 2 adjacent left renal arteries. Mild focal narrowing of approximately 30% at the takeoff of the proximal right renal artery on image 105. Otherwise, the rem aining right renal artery is widely patent. The 2 left renal arteries are also widely patent. No evid ence for renal artery dissection or aneurysm. IMPRESSION: 1. Mild focal narrowing at the takeoff of the proximal right renal artery. 2. There are 2 left renal arteries which are widely patent. 3. The area of decreased enhancement within the left kidney seen on the prior study is not well evalu ated on this study. This may be due to the timing of contrast. 4. Questionable mild thickening within the large bowel which could be due to underdistention or a low -grade colitis. This is similar to the prior CT examination. ACT 112: Negative or not required by law. Electronically signed by: Lit Gupta M.D. 01/16/2024 10:29 AM
[2024-01-16] MEDS: LORazepam 0.5 MG TAB PO STA (10:37)
--- NOTE | 2024-01-16 16:12 | Communication Note ---
Date of Service: January 16, 2024 Still with nausea, ate a cracker I updated her on test results as well as her daughter at bedside.
[2024-01-16] MEDS: LORazepam 0.5 MG TAB PO PRN (21:15)
[2024-01-16] MEDS: APIXABAN 5 MG TABLET PO SCH (21:17)
[2024-01-17 07:58] LABS: Basophils # (auto) 0.07 K/uL (0.00-0.20); Basophils % (auto) 1.1 %; Eosinophils # (auto) 0.31 K/uL (0.00-0.50); Hematocrit (blood only) 31.4 % (37.0-47.0); Hemoglobin 10.8 g/dl (12.0-16.0); Immature Granulocytes # (auto) 0.07 K/uL (0.01-0.20); Immature Granulocytes % (auto) 1.1 %; Lymphocytes # (auto) 2.23 K/uL (1.20-3.40); Lymphocytes % (auto) 36.1 %; Mean Corpuscular Hemoglobin 30.9 pg (25.0-34.0); Mean Corpuscular Hgb Conc 34.4 g/dL (32.0-36.0); Mean Platelet Volume 9.5 fL (9.4-12.4); Monocytes # (auto) 0.92 K/uL (0.11-0.59); Monocytes % (auto) 14.9 %; Neutrophils # (auto) 2.58 K/uL (1.40-6.50); Neutrophils % (auto) 41.8 %; Platelet Count 290 K/uL (130-400); RDW Coefficient of Variation 13.5 % (11.5-14.5); RDW Standard Deviation 44.7 fL (36.4-46.3); Red Blood Count 3.49 M/uL (4.20-5.40); White Blood Count 6.18 K/ul (4.8-10.8)
[2024-01-17 08:06] VITALS: RESP 17
[2024-01-17 08:15] LABS: Albumin Globulin Ratio 1.5 (0.9-2); Albumin Level 3.8 gm/dl (3.4-5.0); BUN Creatinine Ratio 5.9 (10-20); Bilirubin,Total 0.4 mg/dl (0.2-1.0); Calcium 8.8 mg/dl (8.6-10.3); Creatinine Clr Calc Pharmacy 48.1 ml/min; Est GFR (African American) 60.9 ml/min; Est GFR (Non-African American) 52.5 ml/min; Globulin 2.5 gm/dl (2.5-4.0); Magnesium 1.8 mg/dl (1.7-2.4); Potassium 3.7 mmol/L (3.5-5.1); Total Protein 6.3 gm/dl (6.0-8.3)
[2024-01-17] MEDS: ASPIRIN 81 MG ECTAB PO SCH (08:23)
[2024-01-17] MEDS: amLODIPine BESYLATE 5 MG TAB PO ONE (09:50)
[2024-01-17 12:14] VITALS: BP 148/78; PULSE 73; TEMP 98.1; O2SAT 97
[2024-01-17] MEDS ORDERED: amLODIPine BESYLATE 5 MG TAB PO SCH (21:00)
--- NOTE | 2024-01-18 15:51 | Discharge Summary ---
Discharge Summary Date of Service January 18, 2024 Principal Dx & Hospital Course #1 = Principal Diagnosis (1) Renal infarction: 78 y/o woman presented with nausea/vomiting, lightheadedness and hypertensive urgency. 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 no infectious signs or symptoms to suggest pyelonephritis as an alternate diagnosis. Presentation, labs, UA not suggestive of pyelonephritis. She has risk factors for afib and atheroemboli. -LDH - normal, CRP - mildly elevated at 1.82. AST/ALT not elevated -CTA abdomen obtained - no evidence of left-sided renal artery stenosis or occlusion, no dissection. 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 -TTE - more or less normal. Negative bubble study no intracardiac thrombus no significant valvular disease. Normal ejection fraction -tele monitoring without any arrhythmias, ambulatory cardiac monitoring recommended for detection of afib -hypercoag workup sent, pending - anticoagulate with apixaban until hypercoagulability workup, cardiac monitoring is complete - started aspirin for antiplatelet -control hypertension - renal function remained at baseline nausea symptoms improved and she was able to begin to eat bland food, provided prescription for ondansetron as needed. does not have abdominal or flank pain (2) Hypertensive urgency: provoked by renal infarct Was noted to be significantly hypertensive on arrival at 259/159 but otherwise stable continued with losartan, increased amlodipine to 5 mg reasonably good control with this combination - systolic blood pressures in 140s follow-up with outpatient for blood pressure check and dose adjustment to normalize over the next several weeks (3) Intractable nausea and vomiting: improved, related to renal infarct noted to have signs of bowel wall thickening on CT and CTA of the abdomen pelvis which could possibly represent a nonspecific colitis versus under distended colon no abdominal pain or diarrhea however, so perhaps just under distention (4) Elevated troponin: high-sensitivity troponin minimally elevated at 15.9 --> 20 Patient denies recent chest pain, no significant ST segment or T wave changes on EKG, presentation not consistent with ACS consistent with myocardial demand ischemia related to the severe hypertension (5) Hypokalemia: potassium and magnesium replaced on admission related to nausea vomiting low oral intake Notes For Next Care Provider recommend referral for ambulatory cardiac monitoring to exclude the possibility of atrial fibrillation hypercoagulability labs pending: Antithrombin III activity, lupus anticoagulant screen protein S activity, prothrombin gene mutation, factor V Le iden mutation, serum homocysteine, protein C activity consider stopping apixaban and continuing with antiplatelet if the above testing is normal Medication Changes From Visit apixaban and baby aspirin added, amlodipine increased Admission HPI Per Admitting Provider Cheyenne is a 78-year-old female with a past medical history significant for hypertension, anxiety, And hyperlipidemia who presented to the [facility] ED on 01/15/2024 with complaints of approximate 1 week of current nausea, vomiting, and diarrhea. On arrival to the ED she was noted to be significantly hypertensive at 259/159 But otherwise stable. She later became hypoxic after receiving IV pain and nausea medications. Labs were significant for a creatinine 1.31 (no previous baseline in our system), magnesium 1.6, initial high-sensitivity troponin 15, and trace glucose in her UA. Chest x-ray and KUB were read as negative for acute findings. CT of the abdomen pelvis with IV contrast was read as no bowel obstruction or pneumoperitoneum. Areas of mild wall thickening throughout the large bowel may be secondary to partial distention versus a mild nonspecific colitis. Appendectomy and cholecystectomy. Focal area of decreased attenuation within the mid to inferior pole left kidney suggestive of a renal infarct versus pyelonephritis. Correlate with urinalysis. Small hiatal hernia. Prior to admission the patient was given 10 mg IV labetalol, 0.5 mg IV Dilaudid, 3 doses of 4 mg IV Zofran, 5 mg IV metoclopramide, and 1 L normal saline. Patient is lying in bed in no acute distress at time of exam with her and daughter sitting bedside, history is obtained from both. The patient had been in normal state health when she went to bed last evening, when asked she did note that she forgot to take her at bedtime dose of amlodipine. When she woke this morning she explained that she felt "funny". When asked to elaborate further she states she felt somewhat lightheaded and began to experience nausea and nonbloody emesis. Denies any abdominal or back pain. Denies chest pain, shortness of breath, headache, changes in vision, hearing, taste, smell, fever/chills, dysuria/hematuria, diarrhea, melena, lower extremity swelling, and recent trauma. Feels improved compared to arrival but still feeling slightly lightheaded. She currently takes amlodipine and losartan for blood pressure. When asked about eating out recently she confirms that she did not have [employer] yesterday for dinner, her also had the same meal and did not experience any similar symptoms. Denies a previous history of atrial fibrillation, blood clots, or diabetes mellitus. Denied a previous history of any major bleeding if systemic anticoagulation would be required. Confirms she did not have any of her a.m. medications today due to her nausea and vomiting. She wishes to be a full code and for her daughter to make medical decisions for her if she cannot make them herself. Patient explains that she is normally at [facility] patient. Discharge Exam PHYSICAL EXAMINATION Last 24h vital signs reviewed, see documentation in flowsheet General: sitting up in bed, well-appearing currently HEENT: Normocephalic, atraumatic, pupils round and equal, sclerae anicteric, no conjunctival injection, moist mucus membranes Lungs: Normal respiratory effort. Clear to auscultation bilaterally. No RRW Heart: Regular rate and rhythm, no murmurs. No JVD Abdomen: Soft, nontender, nondistended, no abdominal or flank tenderness. Bowel sounds present. Extremities: Warm, dry, well-perfused. No extremity edema. Neuro: Alert and oriented x 4, face symmetric, moves 4 extremities well Psych: Normal affect and behavior Discharge Plan Discharge Items Patient Disposition: Home - Self-Care Reason For Visit: HYPERTENSIVE EMERGENCY, RENAL INFARCT, NAUSEA Discharge Diagnosis: Renal infarct Activity: Resume your previous activity Non-emergency contact: Primary Care Provider Call non-emergency contact if: you have any medication questions and your symptoms worsen Follow-up/Referrals: Michael Nunes MD [Primary Care Provider] - Diet: Low Sodium (2gm) Addtl Attending Provider Instructions: You were treated for left renal infarct - this is kind of like a stroke in your kidney. Fortunately your kidney function didn't get worse. This caused the nausea/vomiting and high blood pressure you experienced. We did an Echo (heart ultrasound) and your heart squeeze and valves are good and there were no blood clots in your heart. We did a CTA of your abdomen that showed all your major blood vessels including to the left kidney are open with no blockages or tears in the arteries. There is a 30% narrowing of the right renal artery but treatment for this involves the same things we are already doing - blood pres sure and cholesterol control, healthy diet etc. We started blood thinner - Eliquis (apixaban) and baby aspirin to prevent any worsening of the infarct and prevent new events Blood tests to detect clotting disorders are pending - these take a few weeks to result You should ask your doctor about setting up an ambulatory heart monitor test to check for atrial fibrillation. We did not see any atrial fibrillation in the hospital. If all these tests are normal you can eventually stop the blood thinner and stay on an aspirin. I increased your amlodipine because your BP is running a little too high. Continue the losartan. You can take ondansetron as needed for nausea. The nausea should be settling down over the next 3-5 days. It was a pleasure taking care of you in the hospital, Trupti Long MD Pending Studies at Discharge: Yes (hypercoagulability labs) Stand-Alone Forms: My [facility], Smoking Cessation Medications and DC Order Prescriptions: New Eliquis 5 mg Tablet See Rx Instructions .ROUTE .COMPLEX Qty: 68 0RF Rx Instructions: 2 tabs every 12 hours for 12 doses then decrease to 1 tab every 12 hours amlodipine [Norvasc] 5 mg Tablet 5 mg PO BID Qty: 60 0RF aspirin 81 mg Tablet,Delayed Release (Dr/Ec) 81 mg PO QAM Qty: 0 0RF Continued Ergocalciferol (Vitamin D) 400 INTER.UNIT tablet 800 inter.unit PO DAILY Qty: 0 Escitalopram (Lexapro) 10 MG tablet 10 mg PO DAILY Qty: 0 LORAZEPAM (ATIVAN) 0.5 MG tablet 0.5 mg PO HS PRN (Reason: Anxiety) Qty: 0 MECLIZINE HCL 25 MG tablet 25 mg PO PRN Qty: 0 Multivitamins/Minerals (Mvi With Minerals) tablet 1 tab PO DAILY Qty: 0 losartan 50 mg tablet 50 mg PO DAILY pantoprazole 40 mg tablet,delayed release (DR/EC) 40 mg PO DAILY Changed pravastatin 80 mg tablet 40 mg PO HS Qty: 0 0RF Held CELECOXIB (CeleBREX) 200 MG capsule 200 mg PO DAILY Qty: 0 Hold Instructions: Resume on 02/14/24. hold until you are no longer on blood thinner. Discuss with your primary care doctor Discontinued amlodipine 2.5 mg tablet 2.5 mg PO BID Discharge Orders: Discharge Order (Routine); Ordered 01/17/24 Ordered By: Trupti Long Admission Data Admit Date/Time: 01/15/24 16:56 Attending Provider: Trupti Long Admit Provider: Maury Pepe Primary Care Provider: Michael Nunes Other Providers: Maury Pepe Other Interventions: Discharge Summary Assessment (RN) Last Done: 01/17/24 13:44 Hospital Stay Data Consultations 01/15/24 16:29 ED Decision to Admit Stat 01/15/24 20:55 HIM [Consult Health Information Management] Routine Diagnostic Imagining Performed 01/15/24 11:49 CT abd pelvis IV con only Stat 01/15/24 16:58 CT head/brain wo con Stat 01/16/24 08:34 CTA abdomen w con [CT angio abdomen w con] Urgent Pending Results Patient Have Any Pending Studies at Discharge: Yes (hypercoagulability labs) Discharge Instructions Given to Patient (Per Discharging Provider) You were treated for left renal infarct - this is kind of like a stroke in your kidney. Fortunately your kidney function didn't get worse. This caused the nausea/vomiting and high blood pressure you experienced. We did an Echo (heart ultrasound) and your heart squeeze and valves are good and there were no blood clots in your heart. We did a CTA of your abdomen that showed all your major blood vessels including to the left kidney are open with no blockages or tears in the arteries. There is a 30% narrowing of the right renal artery but treatment for this involves the same things we are already doing - blood pressure and cholesterol control, healthy diet etc. We started blood thinner - Eliquis (apixaban) and baby aspirin to prevent any worsening of the infarct and prevent new events Blood tests to detect clotting disorders are pending - these take a few weeks to result You should ask your doctor about setting up an ambulatory heart monitor test to check for atrial fibrillation. We did not see any atrial fibrillation in the hospital. If all these tests are normal you can eventually stop the blood thinner and stay on an aspirin. I increased your amlodipine because your BP is running a little too high. Continue the losartan. You can take ondansetron as needed for nausea. The nausea should be settling down over the next 3-5 days. It was a pleasure taking care of you in the hospital, Trupti Long MD Total Time Total Time Spent Total Time Spent (In Minutes): I personally spent: 40 minutes today on clinical care activities including: reviewing chart notes and vital signs reviewing labs examining and counseling the patient writing orders, prescriptions, discharge instructions documentation Coding Level of Care Code 89841 INP/OBS DISCH >30 MIN Diagnoses Renal infarction N28.0 Hypertensive urgency I16.0 Intractable nausea and vomiting R11.2 Elevated troponin R79.89 Hypokalemia E87.6
== END 2024-01-17 15:05 | disposition home or self-care (01) | DRG 305 ==
LOC: ED 10:02 → 2E 16:56 → SUATTDRO 16:56 → 2E 18:39